=== PATIENT | female | born 1970 | race Caucasian/White ===

== ENCOUNTER 2023-12-01 12:01 | Outpatient (OUT) | payer BC, SELFPAY ==
--- NOTE | 2023-12-01 12:08 | XR_ITS ---
[address] [address] Patient Name: ROYCE SMITH MRN: [id number] date: 1970 Sex: F Assigned Patient Location: [facility] Current Patient Location: Accession/Order Number: [id number] Exam Date: 12/01/2023 12:15 Report Date: 12/03/2023 08:01 At the request of: BANDAR ROBERTSON Procedure: XR chest 2V EXAMINATION: XR chest 2V HISTORY: Acute Exacerbation Of Chronic Obstructive Pulmonary Disease COMPARISON: XR chest 07/20/2021 FINDINGS: LUNGS: No significant pulmonary parenchymal abnormalities. VASCULATURE: No increased pulmonary vasculature. PLEURA: No pneumothorax, effusion, or pleural thickening. CARDIAC: No cardiomegaly or cardiac silhouette abnormality. MEDIASTINUM: No visible mass or adenopathy. BONES: No fracture or visible bone lesion. OTHER: Negative. XR/XR chest 2V IMPRESSION: 1. No acute cardiopulmonary process. Stable chest. Electronically authenticated by: LONDON ALVARADO Date: 12/03/2023 08:01
== END 2023-12-01 12:02 | disposition home or self-care (01) ==
LOC: RAD 12:05
PROVIDERS: PCP Family Medicine; Visit Provider Family Medicine
DX: J44.1 Chronic obstructive pulmonary disease with (acute) exacerbation (principal)
CPT/HCPCS: 71046